=== PATIENT | male | born 1965 | race African-American/Black ===

== ENCOUNTER 2019-09-16 21:14 | Emergency (ER) | payer SELFPAY | END 2019-09-16 21:46 | LOC: ERS 21:14 | DX: K40.90 Unilateral inguinal hernia, without obstruction or gangrene, not specified as recurrent (principal); F41.9 Anxiety disorder, unspecified; F31.9 Bipolar disorder, unspecified; F17.210 Nicotine dependence, cigarettes, uncomplicated; Z79.899 Other long term (current) drug therapy | CPT/HCPCS: 99284 ==